=== PATIENT | female | born 1965 | race Caucasian/White ===

== ENCOUNTER 2016-11-27 06:42 | Day surgery (SDC) | payer OTHER ==
--- NOTE | 2016-11-09 12:02 | HP ---
PREOPERATIVE HISTORY AND PHYSICAL: DATE OF SURGERY/ADMISSION: 11/27/16 DATE OF OFFICE VISIT/ENCOUNTER: 11/07/16 ATTENDING SURGEON: Sheela Sr MD. PROCEDURE: Right wrist de Quervain's release, TFCC debridement. CHIEF COMPLAINT: Right wrist and thumb pain. HISTORY OF PRESENT ILLNESS: This is a 51-year-old female who is a [place] [employer] who sustained injury to her right upper extremity at work on when she was involved in a restraint. She had had persistent pain in the right wrist on both of the radial and ulnar aspects. She has failed conservative treatment including bracing and physical therapy. A recent MRI showed evidence of a tear in the TFCC. Clinically she also has been diagnosed with de Quervain's tenosynovitis. The symptoms are bothersome and debilitating enough that the patient has consented to proceed with surgical intervention at this time in the form of the right wrist de Quervain's release and a TFCC debridement. PAST MEDICAL HISTORY: Hypertension. PAST SURGICAL HISTORY: 1. Removal of skin cancer lesions. 2. Hysterectomy. 3. Appendectomy. 4. Left knee arthroscopy. 5. Dental surgery. 6. De Quervain's release, right wrist. 7. De Quervain's release, left wrist. 8. Left carpal tunnel release. CURRENT MEDICATIONS: 1. Hydrochlorothiazide 12.5 mg daily. 2. Fish oil. 3. Multivitamin daily. 4. Vitamin C. ALLERGIES: 1. ASPIRIN causes lip tingling and hives. 2. IBUPROFEN causes nausea. 3. BACTRIM causes nausea. 4. HYDROCODONE causes hives. 5. OXYCODONE causes hives. 6. MOTRIN, reaction unknown. FAMILY HISTORY: Stroke, diabetes, breast cancer. SOCIAL HISTORY: The patient is employed by the [employer]. She denies tobacco use and illicit drug use. She reports alcohol use on limited occasion. REVIEW OF SYSTEMS: General: Negative for fevers, chills, or night sweats. No known anesthesia problems. HEENT: Negative for headache, lightheadedness, or syncopal episodes. Integumentary: Negative for abrasions, lesions, or open wounds. Cardiothoracic: Positive for hypertension. Negative for chest pain, palpitations, or edema. Pulmonary: Negative for shortness of breath with exertion, chronic cough, COPD. GI: Negative for nausea, vomiting, diarrhea, constipation, or GERD. : Negative for nocturia, urinary frequency, urgency, history of UTIs, or kidney problems. Musculoskeletal: Positive for current complaint. Negative for chronic or intermittent back pain or history of fractures. Neurological: Negative for paresthesias, numbness, history of seizure, stroke, or epilepsy. Endocrine: Negative for diabetes or thyroid issues. Hematologic: Negative for easy bruising, anemia, excessive bleeding, or history of DVT. Infectious Disease: Negative for history of MRSA, hepatitis C, or HIV. PHYSICAL EXAMINATION GENERAL: Well-developed, well-nourished 51-year-old female in no acute distress. VITAL SIGNS: Height 5 feet 4 inches, weight 148 pounds. Blood pressure 142/ 83. Pulse rate 59. HEENT: Normocephalic, atraumatic. Pupils are equal, round, and reactive to light and accommodation. Extraocular motions are intact. NECK: Supple. No palpable lymph nodes. Throat is clear. PULMONARY: Lungs are clear to auscultation bilaterally. No wheezes, rales, or rhonchi. CARDIOVASCULAR: Regular rate and rhythm. S1, S2. No murmurs rubs or gallops. No edema. ABDOMEN: Positive bowel sounds, soft, nontender. NEUROLOGICAL: Alert and oriented x3, cranial nerves II through XII are intact. Sensation is intact to light touch. Peripheral vascular, 2+ radial and ulnar pulses. Negative Jose test. MUSCULOSKELETAL: On exam of her right upper extremity, she is tender to palpation along the first dorsal compartment of the wrist. She has increased pain with Rob testing. Very limited range of motion of her thumb and increased pain as she tries to abduct. She also has tenderness to palpation at the distal ulna and distal radioulnar joint and just distal to the ulnar head dorsally. Wrist motion in flexion and extension is quite limited. She lacks a little bit of finger extension and has difficulty making a tight fist. IMAGING STUDIES: MR arthrogram of the right wrist is suspicious for both central and peripheral TFCC tear. IMPRESSION: Right wrist de Quervain's tenosynovitis and triangular fibrocartilage complex tear. PLAN/RECOMMENDATIONS: The patient is scheduled to undergo a right wrist de Quervain's release and a TFCC debridement with Dr. Sr on 11/27/16. She will follow up in 10 to 14 days postop for followup and suture removal. A prescription for Ultracet was e-scribed to the patient's pharmacy for postoperative pain management. KRISTA CHRISTIAN [id number]/[facility] #: [id number] ЕКАТЕРИНА
[~2016-11-27 06:42] MED LIST: Buffered Lidocaine 0.9% SYRIN* 5 ML/SYR SYRINGE INTRADERM ONE; Sodium Citrate/Citric Acid* 15 ML UDC ONE; Sodium Citrate/Citric Acid* 15 ML UDC PO ONE
[2016-11-27] MEDS ORDERED: ceFAZolin 2 GM PREMIX(*) 2 GM/50 ML BAG IVPB ONE (06:53)
[2016-11-27] MEDS ORDERED: Buffered Lidocaine 0.9% SYRIN* 5 ML/SYR SYRINGE ONE (07:12)
[2016-11-27] MEDS ORDERED: Bupivacaine 0.5% SDV PF* 30 ML VIAL ONE (07:29)
[2016-11-27] MEDS ORDERED: fentaNYL* 50 MCG/ML 2 ML VIAL (100 MCG VIAL) ONE (07:37)
[2016-11-27] MEDS ORDERED: Propofol* 10 MG/ML 20 ML BTL IV PUSH ONE (07:37)
[2016-11-27] MEDS ORDERED: Midazolam* 1 MG/ML 2 ML VIAL (2 MG) ONE (07:37)
[2016-11-27] MEDS ORDERED: Lidocaine 2% PF * 5 ML VIAL ONE (07:37)
[2016-11-27] MEDS ORDERED: fentaNYL* 50 MCG/ML 2 ML VIAL (100 MCG VIAL) IV PRN (08:23)
[2016-11-27] MEDS ORDERED: Ondansetron INJ* 2 MG/ML VIAL IV PRN (08:23)
[2016-11-27] MEDS ORDERED: Ondansetron INJ* 2 MG/ML VIAL ONE (09:13)
[2016-11-27] MEDS ORDERED: traMADol TAB* 50 MG ONE (09:29)
[2016-11-27] MEDS ORDERED: Acetaminophen TAB* 325 MG ONE (09:30)
[2016-11-27 09:43] VITALS: BP 152/80
--- NOTE | 2016-11-28 02:03 | OP ---
DATE OF OPERATION: 11/27/16 - MERGED WITH [facility] DATE OF : 61 SURGEON: Sheela Sr MD HOSPITAL ORDERLY: KRISTA Beckman ANESTHESIOLOGIST: Christian Lester DO ANESTHESIA: General. PRE-OP DIAGNOSIS: De Quervain's tenosynovitis and TFCC tear of the right wrist. POST-OP DIAGNOSIS: De Quervain's tenosynovitis and TFCC tear of the right wrist. OPERATIVE PROCEDURE: Right De Quervain's release and right wrist arthroscopy and TFCC debridement. ESTIMATED BLOOD LOSS: Zero. TOURNIQUET TIME: About 35 minutes. 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 Her arm was twisted behind her back. She has on MRI a TFCC tear and she has De Quervain's tenosynovitis clinically. She presents for De Quervain's release and TFCC arthroscopy and debridement. OPERATIVE PROCEDURE: The patient was brought to the operating room, was given a general anesthetic and placed in supine position on the operating table with a tourniquet around her right upper arm. Skin of right upper extremity was prepped and draped in the usual sterile fashion. The hand and forearm were exsanguinated and tourniquet elevated to 250 mmHg. A longitudinal incision was made centered at the radial styloid. We dissected bluntly through the subcutaneous tissue. Branches of the radial sensory nerve and veins were retracted by the neurosurgical nurse practitioner, Patricia Lozano. The first dorsal compartment was incised longitudinally, completely releasing the APL and EPB tendons which were in good condition. The wound was irrigated and skin edges reapproximated with 4-0 nylon suture. Next, a stab incision was made just distal to Brenda's tubercle after filling the radiocarpal joint with 10 cc of 0.5% Marcaine plain. The arthroscope was placed with a cannula into the radiocarpal joint and diagnostic arthroscopy was performed. There was a tear of the TFCC. Scapholunate ligament was intact. The articular surface of the scaphoid, lunate, radius and triquetrum were in very good condition. A second portal was created in the 4-5 interval and a 2.0 Gator shaver was placed in the joint to debride the TFCC and the surrounding synovitis. The arthroscopy instruments were removed and a third portal was created just distal to the first. The arthroscope was placed in the mid carpal joint. We could see that the scapholunate and lunotriquetral ligaments were intact and the articular surface of all the mid carpal bones were intact. The wounds were irrigated and skin edges reapproximated with 4-0 nylon suture. The wounds were dressed with Xeroform, 4x4, Webril, and an Eduard wrap. Patient tolerated the procedure well, was brought to the recovery room in good condition. [id number]/[facility] #: [id number] ЕКАТЕРИНА
== END 2016-11-27 09:59 | disposition home or self-care (01) ==
LOC: OREAST 06:42
PROVIDERS: ATTEND Orthopaedic Surgery
DX: M65.4 Radial styloid tenosynovitis [de Quervain] (principal); S63.591A Other specified sprain of right wrist, initial encounter; X50.9XXA Other and unspecified overexertion or strenuous movements or postures, initial encounter; Y92.9 Unspecified place or not applicable; I10 Essential (primary) hypertension; Z88.6 Allergy status to analgesic agent; Z88.1 Allergy status to other antibiotic agents; Z88.5 Allergy status to narcotic agent
CPT/HCPCS: A9270-GY; J0690; J2250; J2405; J2704; J3010

== ENCOUNTER 2017-04-15 09:25 | Day surgery (SDC) | payer OTHER ==
[~2017-04-15 09:25] MED LIST changes: +DiMENhydriNATE IV* 50 MG/ML VIAL IV PUSH PRN; +Famotidine IV* 10 MG/ML 2 ML (20 mg) IV ONE; +Famotidine IV* 10 MG/ML 2 ML (20 mg) ONE; +HYDROcodone/ACETAMIN 5-325 MG* 1 TAB PO PRN; +Morphine INJ* 2 MG/ML 1 ML CARPUJECT IV PRN; +PROCHLORPERAZINE INJ 5 MG/ML 2 ML VIAL IV PRN; +Scopolamine 1.5 mg* PATCH TRANSDERM PRN; -Sodium Citrate/Citric Acid* 15 ML UDC ONE; -Sodium Citrate/Citric Acid* 15 ML UDC PO ONE; +fentaNYL* 50 MCG/ML 2 ML VIAL (100 MCG VIAL) IV PRN
[2017-04-15] MEDS ORDERED: ceFAZolin 2 GM PREMIX (*) 2 GM/50 ML BAG IVPB ONE (10:26)
[2017-04-15] MEDS ORDERED: Midazolam* 1 MG/ML 5 ML VIAL (5 MG) ONE (10:33)
[2017-04-15] MEDS ORDERED: KETAMINE HCL* 50 MG/ML 10 ML VIAL ONE (10:33)
[2017-04-15] MEDS ORDERED: fentaNYL* 50 MCG/ML 2 ML VIAL (100 MCG VIAL) ONE ×2 (10:33→13:05)
[2017-04-15] MEDS ORDERED: Ketorolac INJ* 30 MG/ML 1 ML VIAL ONE (10:54)
[2017-04-15] MEDS ORDERED: Bupivacaine 0.25% SDV* 30 ML ONE (11:09)
[2017-04-15] MEDS ORDERED: Propofol* 10 MG/ML 20 ML BTL IV PUSH ONE (11:53)
[2017-04-15] MEDS ORDERED: Ondansetron INJ* 2 MG/ML VIAL ONE (11:53)
[2017-04-15] MEDS ORDERED: Lidocaine 2% PF * 5 ML VIAL ONE (11:53)
[2017-04-15] MEDS ORDERED: PROCHLORPERAZINE INJ 5 MG/ML 2 ML VIAL ONE ×2 (11:53→13:55)
[2017-04-15] MEDS ORDERED: Dexamethasone IV* 4 MG/ML 1 ML (4 MG) ONE (11:53)
[2017-04-15] MEDS ORDERED: Glycopyrrolate IV* 0.2 MG/ML 1 ML VIAL ONE (11:53)
[2017-04-15] MEDS ORDERED: Scopolamine 1.5 mg* PATCH ONE (13:55)
[2017-04-15 15:02] VITALS: BP 138/80
--- NOTE | 2017-04-16 06:02 | OP ---
DATE OF SURGERY: 04/15/17 - OR EAST DATE OF [facility]: 61 ATTENDING SURGEON: Cintia Montes De Oca MD ANESTHESIOLOGIST: Dr. Lopez. ANESTHESIA: General interscalene block. PRE-OP DIAGNOSES: Right shoulder partial-thickness rotator cuff tear with bicipital tendonitis and acromioclavicular joint arthritis. POST-OP DIAGNOSES: Right shoulder high-grade partial-thickness bursal sided tearing of the supraspinatus and acromioclavicular joint arthritis. OPERATIVE PROCEDURE: 1. Glenohumeral debridement including debridement of the subscapularis. 2. Subacromial decompression with acromioplasty. 3. Distal clavicle excision. 4. Rotator cuff repair, double-row fashion. 5. Arthroscopic biceps tenodesis. COMPLICATIONS: None. ESTIMATED BLOOD LOSS: Minimal. IMPLANTS USED: One 4.75 HEALICOIL, one MULTIFIX. DISPOSITION: Stable. INDICATIONS: Tiara Gee is a 51-year-old female who was involved in a work- related injury where she injured her shoulder. She has failed conservative management. She also had wrist injury that was treated previously by Dr. Sr. She has failed conservative management and had persistent pain and MRI concerned for a partial thickness rotator cuff tear. After extensive discussion of the risks and benefits of surgical versus nonoperative treatment, she has elected to proceed with surgical treatment. Risks included, but are not limited to bleeding, infection, damage to nerves, vessels, surrounding structures, wound nonhealing, persistent pain, need for further surgery, scarring, stiffness, incomplete relief of symptoms, risk of anesthesia. DESCRIPTION OF PROCEDURE: The patient was greeted in the preoperative area by the attending surgeon. Correct extremity was marked and consent was confirmed. The patient underwent interscalene nerve block by the anesthesiologist, after which she was brought to the operating suite. She was placed in supine position on the operating table. She underwent general anesthesia with LMA intubation, after which she was placed in the left lateral decubitus position with all bony prominences padded. An axillary roll was placed. She was secured with a pegboard. The right arm was draped unsterile with 10 pounds of traction. The right shoulder was prepped and draped in the usual sterile fashion, beginning with chlorhexidine soap, scrub, and alcohol wipes and a final prep with ChloraPrep. After appropriate surgical pause indicating side, site of the procedure and administration of antibiotics, a posterolateral incision was made sharply with the 11-blade. The scope was then introduced into the joint. The joint was examined. There was abundant erythema and hyperemia. There was undersurface tearing of supraspinatus as well as subscapularis. The anterior portal was made in outside-in fashion. Biceps was taken through range of motion and found to have a synovitis and inflammation, although most of the superior labrum was still attached. The anterior and posterior labrum had mild fraying. The glenohumeral joint had grade 0 to 1 changes. The inferior recess was intact. Subscapularis was intact, about 5% of fraying. The shaver was used to debride back the undersurface of the subscap as well as the supraspinatus. This was then marked with an 0 PDS suture to identify there is tearing on the dorsal site. The biceps was also tagged with an 0 Vicryl PDS suture for later tenodesis to be done arthroscopically. The remainder of the debridement was completed and attention was directed to subacromial space. The scope was then positioned in the subacromial space and a lateral port was made in outside-in fashion. The shaver was used to debride the abundant bursa that was present. This exposed the undersurface of the acromion and had a moderate size spur. The electrocautery device was then used to skeletonize this as well as release the CA ligament. Once the spur was identified, the 4-0 oval huseyin was used to do an acromioplasty all the way to the level of AC joint, which was very stenotic. The electrocautery device was used to expose and remove some of the soft tissues with care to prevent damage to the CC ligament. Attention was directed to the distal clavicle. The huseyin was brought into the anterior portal, 8 mm of distal clavicle was resected using a 4-0 oval huseyin with care to prevent any damage to the CC ligaments. All fluids and debris was removed and all excess debris was removed. Attention was directed to the rotator cuff. The previously marked site with the PDS sutures identified and probed, it was found to have partial-thickness tearing on the bursal site and softening, and the decision was made to repair this. The 11-blade was used to complete the tear and the electrocautery device as well as the shaver and the rasp as well as arthroscopic huseyin were then used to prepare the greater tuberosity. The biceps was then brought through to the subacromial space and this was also kept on tension to be tagged and then later repaired. A separate #2 ortho braid suture was passed through the biceps tendon and tenodesis with rotator cuff repair. A one 4.75 HEALICOIL was placed through separate stab incision along the medial aspect of the greater tuberosity and passed through the supraspinatus tendon in a horizontal mattress configuration. This was then tied down. The biceps was also tied down, but the free sutures were then passed through a separate MULTIFIX anchor for double- row fixation of the rotator cuff and anchor fixation of the biceps. Final images were taken. Shoulder was taken through range of motion and found to be intact. Fluids and debris were removed from the joint. The wounds were copiously irrigated with sterile saline. The wounds were closed with 3-0 nylon. Sterile dressings were applied as well as Cryo/Cuffs and UltraSling. She was awoken from anesthesia, transferred to PACU in stable condition. POSTOPERATIVE PLAN: She will be nonweightbearing. She will be in a sling for 6 weeks. She will have range of motion of her elbow, wrist, and hand. She will start therapy at 4 weeks. She will be discharged on pain medications. DVT prophylaxis was considered, but deferred due to no previous personal or family history. I will see the patient back in 10 to 14 days. [id number]/[facility] #: [id number] ЕКАТЕРИНА
[2017-04-18] MEDS ORDERED: Scopolamine PATCH Remove* 1 NOTE MISC PATCH OFF ONE (05:49)
== END 2017-04-15 15:03 | disposition home or self-care (01) ==
LOC: OREAST 09:25
PROVIDERS: ATTEND Orthopaedic Surgery
DX: S46.011A Strain of muscle(s) and tendon(s) of the rotator cuff of right shoulder, initial encounter (principal); M19.211 Secondary osteoarthritis, right shoulder; X58.XXXA Exposure to other specified factors, initial encounter; Y92.9 Unspecified place or not applicable; G89.18 Other acute postprocedural pain; S46.101A Unspecified injury of muscle, fascia and tendon of long head of biceps, right arm, initial encounter; M75.21 Bicipital tendinitis, right shoulder; M75.41 Impingement syndrome of right shoulder; I10 Essential (primary) hypertension; Z85.828 Personal history of other malignant neoplasm of skin; Z88.6 Allergy status to analgesic agent; Z88.1 Allergy status to other antibiotic agents; Z88.5 Allergy status to narcotic agent; Z88.7 Allergy status to serum and vaccine; Z88.8 Allergy status to other drugs, medicaments and biological substances
CPT/HCPCS: A9270-GY; C1713; J0690; J0780; J1100; J1885; J2250; J2405; J2704; J3010

== ENCOUNTER 2018-02-03 06:14 | Day surgery (SDC) | payer OTHER ==
--- NOTE | 2018-01-28 19:22 | HP ---
PREOPERATIVE HISTORY AND PHYSICAL: DATE OF ADMISSION/SURGERY: 02/03/18 - OR EAST DATE OF OFFICE VISIT: 01/28/18 ATTENDING SURGEON: Dr. Cintia Montes De Oca.* (DICTATED BY KRISTA NEWSOME) PROCEDURE: Right shoulder arthroscopic lysis of adhesions, debridement, manipulation, and possible revision of rotator cuff repair. CHIEF COMPLAINT: Right shoulder. HISTORY OF PRESENT ILLNESS: Tiara is a 52-year-old female, who presents to the clinic status post right shoulder rotator cuff repair on 04/15/17. Her postoperative course was complicated with stiffness. She is still unable to raise her arm actively above 90 degrees. She has failed conservative measures to include physical therapy and injection, and has therefore agreed to undergo right shoulder arthroscopic lysis of adhesions, debridement, manipulation, and possible revision of rotator cuff repair with Dr. Montes De Oca on 02/03/18. PAST MEDICAL HISTORY: Hypertension; previous type 2 diabetes, controlled with diet and exercise; previous high cholesterol; history of skin cancer that was removed several times. PAST SURGICAL HISTORY: Right shoulder, right wrist, left knee x2, appendectomy , hysterectomy, and skin cancer removal. The patient denies prior complications with anesthesia. MEDICATIONS: 1. Hydrochlorothiazide 12.5 mg 1 by mouth daily. 2. Tylenol 325 mg 2 tabs every 4 hours as needed. ALLERGIES: BACTRIM, ASPIRIN, IBUPROFEN, HYDROCODONE, OXYCODONE, MOTRIN. FAMILY HISTORY: Positive for diabetes, hypertension, stroke, and cancer. SOCIAL HISTORY: She lives with her spouse. 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 She denies tobacco use. She reports rare alcohol consumption. She is right-hand dominant. REVIEW OF SYSTEMS: A 14-point review of systems was reviewed with the patient. Positive for current complaint, otherwise negative. Denies fever, chills, chest pain, shortness of breath, history of bleeding disorder, history of DVT or PE. PHYSICAL EXAMINATION GENERAL: A 52-year-old, well-developed, well-nourished female, in no acute distress. VITAL SIGNS: Height 64, weight 166, pulse 72, blood pressure 128/82, respiratory rate 18, BMI 28.5. HEENT: Normocephalic, atraumatic. PERRLA. Throat: Clear. NECK: Supple. PULMONARY: Lungs are clear to auscultation bilaterally. No wheezing, rhonchi, or rales. CARDIO: Regular rate and rhythm. S1, S2. No murmurs, gallops, or rubs. No edema. ABDOMEN: Positive bowel sounds, soft, nontender. NEURO: Alert and oriented x3. Cranial nerves grossly intact. Sensation is intact to light touch. MUSCULOSKELETAL: Right upper extremity, skin is intact. No warmth or erythema. Well-healed surgical incision. She does have global edema of her right upper extremity compared to the contralateral side. Active forward flexion to 90, abduction to 90, passively unable to get her past, external rotation to 45, internal rotation to lateral hip. +2 radial pulse. Sensation is intact to light touch distally. DIAGNOSTIC STUDIES: MR arthrogram revealed no full-thickness rotator cuff tear. She does have tendinopathy and fluid extravasation indicating some adhesive capsulitis. ASSESSMENT: Right shoulder adhesive capsulitis, possible rotator cuff tear. PLAN: The patient is scheduled to undergo a right shoulder arthroscopic lysis of adhesions, debridement, and manipulation, and possible revision of rotator cuff repair with Dr. Montes De Oca on 02/03/18. Jud will be used for postop pain management. The patient had tolerated that well last time. She will follow up in 10 to 14 days postop for followup and suture removal. We will set up physical therapy for the day after surgery in case it is just a manipulation and we will cancel this if it is a rotator cuff repair. KRISTA NEWSOME [id number]/[facility] #: [id number] [facility]ALTH[facility]
[~2018-02-03 06:14] MED LIST changes: +Dexamethasone IV* 4 MG/ML 1 ML (4 MG) IV SLOW PU ONE; -DiMENhydriNATE IV* 50 MG/ML VIAL IV PUSH PRN; -Famotidine IV* 10 MG/ML 2 ML (20 mg) ONE; -HYDROcodone/ACETAMIN 5-325 MG* 1 TAB PO PRN; -Morphine INJ* 2 MG/ML 1 ML CARPUJECT IV PRN; -PROCHLORPERAZINE INJ 5 MG/ML 2 ML VIAL IV PRN; -Scopolamine 1.5 mg* PATCH TRANSDERM PRN; -fentaNYL* 50 MCG/ML 2 ML VIAL (100 MCG VIAL) IV PRN
[2018-02-03] MEDS ORDERED: Famotidine IV* 10 MG/ML 2 ML (20 mg) ONE (06:18)
[2018-02-03] MEDS ORDERED: Dexamethasone IV* 4 MG/ML 1 ML (4 MG) ONE (06:18)
[2018-02-03] MEDS ORDERED: ceFAZolin 2 GM in NS PREMIX(*) 2 GM/100 ML BAG IVPB ONE (06:24)
[2018-02-03] MEDS ORDERED: Propofol* 10 MG/ML 20 ML BTL IV PUSH ONE (07:04)
[2018-02-03] MEDS ORDERED: fentaNYL* 50 MCG/ML 2 ML VIAL (100 MCG VIAL) ONE (07:04)
[2018-02-03] MEDS ORDERED: Lidocaine 2% PF * 5 ML VIAL ONE (07:04)
[2018-02-03] MEDS ORDERED: Mivacurium Chloride* 20 MG/10 ML VIAL IV ONE (07:04)
[2018-02-03] MEDS ORDERED: Midazolam* 1 MG/ML 2 ML VIAL (2 MG) ONE (07:04)
[2018-02-03] MEDS ORDERED: ROPIVACAINE 5 MG/ML 30 ML BTL (0.5%) ONE ×2 (07:05→07:09)
[2018-02-03] MEDS ORDERED: fentaNYL* 50 MCG/ML 2 ML VIAL (100 MCG VIAL) IV PRN (08:27)
[2018-02-03] MEDS ORDERED: HYDROcodone/ACETAMIN 5-325 MG* 1 TAB PO PRN (08:27)
[2018-02-03] MEDS ORDERED: Naloxone* 0.4 MG/ML 1 ML VIAL IV PRN (08:27)
[2018-02-03] MEDS ORDERED: DiMENhydriNATE IV* 50 MG/ML VIAL IV PUSH PRN (08:27)
[2018-02-03] MEDS ORDERED: Ondansetron INJ* 2 MG/ML VIAL ONE (08:43)
[2018-02-03] MEDS ORDERED: DiMENhydriNATE IV* 50 MG/ML VIAL ONE (09:19)
--- NOTE | 2018-02-03 10:57 | OP ---
CC: PCP, Unruly Rodriguez MD * DATE OF OPERATION: 02/03/18 - [facility] DATE OF : 61 SURGEON: Cintia Montes De Oca MD DIRECTOR OF KNOWLEDGE MANAGEMENT: KRISTA Beckman. An evaluation assistant was needed for the entirety of the case to help with position, retraction, and utilized throughout all portion of the case. ANESTHESIOLOGIST: Dunia Sosa MD ANESTHESIA: General interscalene block. PRE-OP DIAGNOSIS: Right shoulder adhesive capsulitis with possible partial- thickness tear of the rotator cuff. POST-OP DIAGNOSIS: Right shoulder adhesive capsulitis with possible partial- thickness tear of the rotator cuff. OPERATIVE PROCEDURE: Right shoulder arthroscopy with: 1. Manipulation under anesthesia. 2. Lysis of adhesions. 3. Rotator cuff repair with REGENETEN patch. INDICATIONS: Tiara Gee is a 52-year-old female, who was status post right shoulder arthroscopy with rotator cuff repair, decompression, debridement, and subpectoral biceps tenodesis, the surgery was 04/15/17 as a result of a work- related injury. She struggled with pain and motion postoperatively. She did have an MRI that demonstrated a possible partial-thickness tear. The risks and benefits of the surgery were discussed at length included but not limited to bleeding; infection; damage to nerves, vessels, surrounding structures; wound nonhealing; persistent pain; need for further surgery; scarring; stiffness; incomplete relief of symptoms; risk of anesthesia. COMPLICATIONS: None. ESTIMATED BLOOD LOSS: Minimal. IMPLANTS: REGENETEN patch with appropriate bone and tendon phil. DISPOSITION: Stable. DESCRIPTION OF PROCEDURE: The patient was greeted in the preoperative area by the attending surgeon. Correct extremity was marked. Consent was confirmed. The patient then underwent interscalene nerve block by the anesthesiologist after which she was brought back to the operating suite. She was placed in supine position on the operating table. She then underwent general anesthesia with endotracheal intubation after which she was appropriately positioned. A brief surgical pause was done and the range of motion was checked. She was able to passively forward flex to about 140 and then I manipulated her to forward flex to 160. There were obvious adhesions that were present and with audible lysis of adhesion. External rotation to about 75 degrees. Abduction to about 150 degrees. It was done passively with care to stabilize the scapula and she was able to cross-body adduct to her other shoulder, after which she was placed in the left lateral decubitus position, all bony prominences were padded. She was secured with pegboard. Axillary roll was placed. The right shoulder was draped unsterile with 10 pounds of traction. The right shoulder was prepped and draped in the usual sterile fashion beginning with chlorhexidine soap, scrub, and alcohol wipe, and a final prep with ChloraPrep. After appropriate surgical pause indicating side, site, procedure, and administration of antibiotics, the standard posterolateral portal was made sharply with 11 blade. The scope was positioned. There were definite adhesions. It was difficult to get the scope in. Once the scope was in, there were grade 0 to 1 changes of glenohumeral joint. There was evidence of previous biceps tenotomy. The undersurface of rotator cuff had evidence of loss of tension of the sutures. There were no free flying loose fragments and there was evidence that the rotator cuff had healed in spite of that. The subscap was intact. There were significant amount of adhesions anteriorly and abundant scar tissue injury. Recess was intact. The anterior portal was made in an outside-in fashion. A shaver was used to debride the synovitis, but the electrocautery device was used to carefully try to release the adhesions particularly anteriorly as well as remove the scar tissue from the interval. Once the intra-articular portion had been completed, attention was directed to the subacromial space. With the scope in the subacromial space, the joint was examined. There was significant amount of scar tissue and recurrent impingement that was present in the subacromial space. A lateral portal was made in an outside-in fashion. Shaver was used to debride back the abundant thick bursa that was present both anteriorly, medially, laterally, and posteriorly. The electrocautery device was then used to skeletonize the acromion again. The shaver was used to debride the bursa off the rotator cuff. The rotator cuff was found to be intact on the bursal side. Once the bursa was cleared and the cuff gently probed, the decision was made to do put a REGENETEN patch, as she did have partial-thickness tearing in the undersurface. The medium size patch was then brought to the field and then placed appropriately. The patch was secured medially with tendon staple and laterally with bone phil. The final images were obtained. The wounds were copiously irrigated with sterile saline and the portals were closed with 3-0 nylon. Sterile dressings were applied as well as regular sling. She was awoken from anesthesia and transferred to PACU in stable condition. POSTOPERATIVE PLAN: She will be nonweightbearing. She will be discharged on pain medication. DVT prophylaxis was considered but deferred due to no previous personal or family history. I will see the patient back in 10 to 14 days. She will start therapy on postop day 1 and wean out of the sling in the next 2 to 3 days. DVT prophylaxis was considered but deferred due to no previous personal or family history. [id number]/[facility] #: [id number] [facility]OSPITALRhonda
[2018-02-03 11:01] VITALS: BP 169/78
== END 2018-02-03 10:40 | disposition home or self-care (01) ==
LOC: OREAST 06:14
PROVIDERS: ATTEND Orthopaedic Surgery
DX: S46.011D Strain of muscle(s) and tendon(s) of the rotator cuff of right shoulder, subsequent encounter (principal); M75.01 Adhesive capsulitis of right shoulder; X58.XXXD Exposure to other specified factors, subsequent encounter; Y92.89 Other specified places as the place of occurrence of the external cause; I10 Essential (primary) hypertension; Z85.828 Personal history of other malignant neoplasm of skin; G89.18 Other acute postprocedural pain
CPT/HCPCS: 88304; C1713; J0690; J1100; J1240; J2250; J2405; J2704; J2795; J3010

== ENCOUNTER 2019-09-02 13:28 | Emergency (ER) | payer OTHER ==
--- OUTSIDE RECORDS SUMMARY | 2019-09-02 13:55 | XMS REPORT | Continuity of Care Document ---
:1965 External Reference #:[id number] Author Name Unruly Rodriguez M.D. Address [address] [place] [address] Care Team Providers Name Role Phone Sheela Sr MD - Surgery of the Care Team Information Account Resolution Analyst Hand Marbin Taylor MD Care Team Information Account Resolution Analyst Unavailable Demetri Garcia MD Care Team Information Account Resolution Analyst [phone] Irma Martinez MD - Dermatology Care Team Information Account Resolution Analyst Keyona Grimes - Allergy & Care Team Information Account Resolution Analyst [phone] Immunology Dorian Butts MD - Care Team Information Account Resolution Analyst [phone] Gastroenterology Giselle Pisano - Pediatric Care Team Information Account Resolution Analyst [phone] Dermatology Problems Active Problems Provider Date Essential hypertension Unruly Rodriguez M.D. Onset: 08/27/2011 Rosacea Unruly Rodriguez M.D. Onset: 08/27/2011 Type 2 diabetes mellitus Unruly Rodriguez M.D. Onset: 08/27/2011 Pure hypercholesterolemia Unruly Rodriguez M.D. Onset: 08/27/2011 Social History Type Date Description Comments Sex Unknown Tobacco Use Start: Unknown Never Smoked Cigarettes ETOH Use Drinks A Few Beers A Year. Tobacco Use Start: Unknown Patient has never smoked Exercise Type/Frequency Exercising Regularly weights, running 5-6x/week. Goal is 1 hour at a time. Often 90-120min a day. aerobic Weights as well. 10k+ steps a day at work. Allergies, Adverse Reactions, Alerts Active Allergies Reaction Severity Comments Date Bactrim Trouble Breathing 06/07/2003 Emilyrosyn felt funny, tongue tingling 01/13/2010 Enalapril angioedema 04/27/2012 Aspirin angioedema 06/17/2014 Hepatitis B Vaccine trouble breathing 06/17/2014 Losartan nasal congestion 05/09/2016 Medications Active Medications SIG Qnty Indications Ordering Date Provider Hydrochlorothiazide Take 1 Tablet 90tabs I10 Unruly Jiméneze, 05/05/2017 25mg Tablets By Mouth M.D. Every Day Metrogel apply to rash 60gm L71.9 Unruly Rodriguez, 09/06/2016 1% Gel on face every M.D. day as needed Medications Administered in Office Medication SIG Qnty Indications Ordering Provider Date TB,Intradermal (PPD, [facility]) [facility] 04/13/2019 Injection Phenergan Injection (Up To Donald Mark M.D. 07/03/2005 50MG) Injection Demerol Injection (Up To Donald Mark M.D. 07/03/2005 100MG) Injection Immunizations CPT Code Status Date Vaccine Lot # [id number] Given 02/12/2019 Influenza Virus Vaccine, Quadrivalent, 3 Yr > Quad, Preserv Free 31062 Given 08/06/2018 Tdap (Adacel) [id number] 34428 Given 02/19/2018 Influenza Virus Vaccine, Quadrivalent, 3 Yr > Quad, Preserv Free 58537 Given 04/05/2017 Influenza Virus Vaccine, Quadrivalent, 3 Yr > [id number] Quad, Preserv Free 14293 Given 04/20/2016 Influenza Virus Vaccine, Quadrivalent, 3 Yr > [id number] Quad, Preserv Free 26399 Given 03/22/2014 Influenza Virus Vaccine, Quadrivalent, 3 Yr > Quad, Preserv Free 53256 Given 02/09/2009 Tdap (Adacel) [id number] 09667 Given 04/12/2004 Influenza Virus Vaccine, 3 Yrs And Above Vital Signs Date Vital Result Comment 06/18/2019 9:31am Weight 157.00 lb Weight 71.215 kg BP Systolic 124 mmHg BP Diastolic 82 mmHg Heart Rate 64 /min Body Temperature 98.4 F Respiratory Rate 16 /min Height 64 inches 5'4" BMI (Body Mass Index) 26.9 kg/m2 11/06/2018 9:53am Weight 170.00 lb Weight 77.112 kg BP Systolic 122 mmHg BP Diastolic 76 mmHg Heart Rate 60 /min Body Temperature 98.6 F Respiratory Rate 15 /min O2 % BldC Oximetry 98 % Results Test Acquired Facility Test Result H/L Range Note Date Laboratory 05/26/2019 [facility] Hemoglobin A1c 6.6 % High 4.0-5.6 1 test finding [phone] (Glyco HGB) Lipid Profile 05/26/2019 [facility] Triglycerides 199 mg/dL 2 (Trig/Chol/HDL [phone] ) Cholesterol 229 mg/dL 3 HDL Cholesterol 56.7 mg/dL 4 LDL Cholesterol 133 mg/dL 5 Laboratory test 05/26/2019 [facility] Glucose 158 mg/ dL High 70-100 6 finding [phone] 1 Therapeutic target for the treatment of diabetes mellitus patients is <7% HBA1C, and in selective patients <6.0%. Please refer to [place] [employer] diabetic care guidelines for further information. 2 Desirable: <150 Borderline High: 150-199 High: 200-499 Very High: >500 3 Desirable: <200 Borderline High: 200-239 High: >239 4 Low: <40 Desirable: 40-60 High: >60 5 Desirable: <100 Near Optimal: 100-129 Borderline High: 130-159 High: 160-189 Very High: >189 6 [id number] FASTING Procedures Date Code Description Status 09/17/2014 [id number] Colonoscopy Completed Medical Devices Description No Information Available Encounters Description No Information Available Assessments Date Code Description Provider 06/18/2019 E11.9 Type 2 diabetes mellitus without Unruly Rodriguez M.D. complications 06/18/2019 E78.00 Pure hypercholesterolemia, unspecified Unruly Rodriguez M.D. 06/18/2019 I10 Essential (primary) hypertension Unruly Rodriguez M.D. 05/26/2019 E11.9 Type 2 diabetes mellitus without Unruly Rodriguez M.D. complications 05/26/2019 E11.9 Type 2 diabetes mellitus without [facility] complications 05/26/2019 E78.00 Pure hypercholesterolemia, unspecified Unruly Rodriguez M.D. 05/26/2019 E78.00 Pure hypercholesterolemia, unspecified [facility] 04/13/2019 Z11.1 Encounter for screening for respiratory Unruly Rodriguez M.D. tuberculosis Plan of Treatment Future Appointment(s):02/10/2020 8:00 am - [facility] Euzyym5002/17/2020 8:45 am - Unruly Rodriguez M.D. at [facility] Wnavlh0606/18/2019 - Unruly Rodriguez M.D.E11.9 Type 2 diabetes mellitus without complicationsComments:A1c has dropped to 6.6.I recommend starting metformin.She is very eager to remain off of medication and has been making dramatic efforts at lifestyle change.Follow up :CPE in Jan, fasting labs a week before.E78.00 Pure hypercholesterolemia, unspecifiedComments:We discussed indication for statin.Lipid panel is quite remarkable through diet and exercise.LDL slightly above goal.Again it seems reasonable to honor request to be on no medication and continue her current lifestyle [id number] Essential (primary) hypertensionComments:Well controlled on current medications. Functional Status Description No Information Available Mental Status Description No Information Available Referrals Description No Information Available
[2019-09-02] MEDS ORDERED: Ondansetron ODT TAB* 4 MG PO ONE (14:00)
--- NOTE | 2019-09-02 14:07 | ED ---
Complex/Multi-Sys Presentation - HPI Summary HPI Summary: Patient is a 54 y/o F presenting to [facility] with complaints of tingling at her extremities, N/V and tachypnea. Patient reports that, this morning, she felt "funny" and "off". Patient states that she went for a three mile walk, which she notes was abnormally difficult for her. When patient was at home, she sat on the cough and felt her left hand start to tingle. Patient began to move around the house and states that the sensation radiated up her arm. Tingling at her right arm subsequently onset. Patient notes FMHx of CVA in father, she was concerned for stroke and came to ED for evaluation. She states that her tingling onset around 1300 today, 09/02/19. Patient notes that she has been intermittently nauseous and had vomited multiple times in triage. Tachypnea is also noted. Weakness, slurred speech, changes in vision are denied. Patient also notes that she had loose stools yesterday. PMHx of HTN for which the patient is on hydrochlorothiazide and pre-eclampsia noted. Patient states that she was told that she had two panic attacks when she was experiencing pre- eclampsia. PSHx of appendectomy, hysterectomy, caesarean sections, knee surgeries reported. Patient is a non-smoker, rarely smokes alcohol, and denies other substance usage. Home medications and allergies are reviewed. - History Of Current Complaint Chief Complaint: EDNeurologicalDeficit Time Seen by Provider: 09/02/19 13:49 Hx Obtained From: Patient Onset/Duration: Lasting Minutes Timing: Minutes Aggravating Factor(s): nothing Alleviating Factor(s): nothing Associated Signs And Symptoms: Positive: Nausea, Vomiting, Other - positive - tachypnea, tingling, loose stools; negative - slurred speech, changes in vision. Negative: Weakness - Allergies/Home Medications Allergies/Adverse Reactions: Allergies Allergy/AdvReac Type Severity Reaction Status Date / Time sulfamethoxazole Allergy Severe Anaphylatic Verified 03/26/18 09:17 [From Bactrim] Shock aspirin Allergy Intermediate Hives Verified 03/26/18 09:17 ibuprofen Allergy Intermediate Swelling Verified 03/26/18 09:17 Of Face,Lips,& Throat oxycodone Allergy Intermediate Hives Verified 03/26/18 09:17 ALMONDS Allergy Intermediate EYE Uncoded 03/26/18 09:17 SWELLING ADHESIVES AdvReac Mild REDNESS Uncoded 03/26/18 09:17 Home Medications: Home Medications Acetaminophen [Tylenol Extra Strength] 1,000 mg PO Q8H PRN 03/10/18 [History Confirmed 09/02/19] Hydrochlorothiazide TAB* [Hydrodiuril TAB*] 25 mg PO DAILY 09/02/19 [History Confirmed 09/02/19] Magnesium Carb/Aluminum Hydrox [Antacid Ex-Str Tablet Chew] 1 each PO QAM 7 Days #7 tab.chew 09/02/19 [Rx] Ondansetron ODT TAB* [Zofran 4 MG Odt TAB*] 4 mg PO Q8H PRN #12 tab.odt [Rx] Potassium Chlor TAB* [Potassium Chlor TAB 20 MEQ*] 20 meq PO DAILY 7 Days #7 tab.er 09/02/19 [Rx] PMH/Surg Hx/FS Hx/Imm Hx Endocrine/Hematology History: Denies: Hx Bone Marrow Disease, Hx Diabetes - HX OF BEFORE WEIGHT LOSS, NO PROBLEMS NOW, Hx Sickle Cell Disease Cardiovascular History: Reports: Hx Hypertension - ON MEDS Denies: Hx Pacemaker/ICD, Other Cardiovascular Problems/Disorders Respiratory History: Denies: Other Respiratory Problems/Disorders GI History: Denies: Other GI Disorders History: Denies: Hx Renal Disease Musculoskeletal History: Reports: Other Musculoskeletal History - INJURY TO RIGHT SHOULDER/WRIST 10/10/16 Sensory History: Reports: Hx Contacts or Glasses - glasses for reading Denies: Hx Hearing Aid Opthamlomology History: Reports: Hx Contacts or Glasses - glasses for reading Neurological History: Reports: Hx Migraine - rarely- usually stress related Denies: Other Neuro Impairments/Disorders Psychiatric History: Reports: Hx Anxiety - pre surgery anxiety Denies: Hx Panic Disorder - Cancer History Cancer Type, Location and Year: SKIN CARCINOMA Hx Chemotherapy: No Hx Radiation Therapy: No - Surgical History Surgery Procedure, Year, and Place: HYSTEROECTOMY. . APPENDIX. 2 LEFT KNEE SURGERY. LEFT WRIST SURGERY 2016. CARPAL TUNNEL ON LEFT WRIST 2015. RIGHT WRIST SURGERY IN SEPTEMBER 2016. RIGHT HAND SURGERY IN SEPTEMBER 2016. RIGHT SHOULDER, MAR 2017 Hx Anesthesia Reactions: No Infectious Disease History: No Infectious Disease History: Denies: History Other Infectious Disease, Traveled Outside the [place] in Last 30 Days - Family History Known Family History: Positive: Other - CVA - Social History Alcohol Use: Rare Alcohol Amount: 2-3 PER YEAR Substance Use Type: Reports: None Smoking Status (MU): Never Smoked Tobacco Review of Systems Eyes: Other - negative - changes to vision Positive: Other - tachypnea Positive: Vomiting, Nausea, Other - loose stools Positive: Paresthesia - tingling . Negative: Weakness, Slurred Speech All Other Systems Reviewed And Are Negative: Yes Physical Exam - Summary Physical Exam Summary: Constitutional: Well-developed, Well-nourished, Alert. (-) Distressed Skin: Warm, Dry HENT: Normocephalic; Atraumatic Eyes: Conjunctiva normal Neck: Musculoskeletal ROM normal neck. (-) JVD, (-) Stridor, (-) Tracheal deviation Cardio: Rhythm regular, rate normal, Heart sounds normal; Intact distal pulses; Radial pulses are 2+ and symmetric. (-) Murmur Pulmonary/Chest wall: Effort normal. (-) Respiratory distress, (-) Wheezes, (-) Rales Abd: Soft, (-) tenderness, (-) Distension, (-) Guarding, (-) Rebound Musculoskeletal: (-) Edema Lymph: (-) Cervical adenopathy Neuro: Alert, Oriented x3; GCS 15, NIH 0 Psych: Anxious appearing Triage Information Reviewed: Yes Vital Signs On Initial Exam: Initial Vitals Temp Pulse Resp BP Pulse Ox 99.1 F 95 18 166/114 99 09/02/19 13:31 09/02/19 13:31 09/02/19 13:31 09/02/19 13:31 09/02/19 13:31 Vital Signs Reviewed: Yes - John Coma Scale Best Eye Response: 4 - Spontaneous Best Motor Response: 6 - Obeys Commands Best Verbal Response: 5 - Oriented Coma Scale Total: 15 Procedures - Sedation Patient Received Moderate/Deep Sedation with Procedure: No Diagnostics - Vital Signs Vital Signs Temp Pulse Resp BP Pulse Ox 09/02/19 13:31 99.1 F 95 18 166/114 99 - Laboratory Result Diagrams: 09/02/19 14:15 09/02/19 14:15 Lab Statement: Any lab studies that have been ordered have been reviewed, and results considered in the medical decision making process. - CT BRAIN CT CT Interpretation Completed By: Radiologist Summary of CT Findings: IMPRESSION: #. No acute intracranial process evident. THIS REPORT WAS REVIEWED BY ED PHYSICIAN. National Institutes Of Health - NIH Scale Level of Consciousness: Alert/Keenly Responsive Ask Patient the Month and His/Her Age: Both Correct Ask Pt to Open/Close Eyes and Security Guard Dispatcher/Release Non-Paretic Hand: Both Correctly Best Gaze (Only Horizontal Eye Movement): Normal Visual Field Testing: No Visual Loss Facial Paresis-Pt to Smile & Close Eyes or Grimace Symmetry: Normal/Symmetrical Motor Function - Right Arm: No Drift-Holds 10 Seconds Motor Function - Left Arm: No Drift-Holds 10 Seconds Motor Function - Right Leg: No Drift-Holds 10 Seconds Motor Function - Left Leg: No Drift-Holds 10 Seconds Limb Ataxia-Must be out of Proportion to Weakness Present: Absent Sensory (Use Pinprick to Test Arms/Legs/Trunk/Face): Normal Best Language (Describe Picture, Name Items): No Aphasia Dysarthria (Read Several Words): Normal Extinction and Inattention: No Abnormality Total Score: 0 Complex Multi-Symp Course/Dx Course Of Treatment: Patient is here with tingling in her hands and feet. Patient was very anxious upon arrival due to her father's having a stroke in the past. The patient has an NIH stroke scale of 0. Patient was vomiting in a projectile fashion's a CT brain was ordered to eval for intracranial hemorrhage which was negative. Patient had bladder performers hypokalemia and hypomagnesemia. Patient was given 40 mEq of by mouth potassium, 20 mg of IV potassium, and 2 g of IV magnesium. Patient was started on by mouth magnesium and potassium. Patient will follow up with her primary care doctor for further workup and recheck - Diagnoses Provider Diagnoses: Hypokalemia, Hand tingling, Vomiting - Critical Care Time Critical Care Statement: Critical care time is provided exclusive of any time spent performing procedures. Discharge ED - Sign-Out/Discharge Documenting (check all that apply): Patient Departure - discharge - Discharge Plan Condition: Stable Disposition: HOME Prescriptions: Magnesium Carb/Aluminum Hydrox [Antacid Ex-Str Tablet Chew] 1 each PO QAM 7 Days #7 tab.chew Ondansetron ODT TAB* [Zofran 4 MG Odt TAB*] 4 mg PO Q8H PRN #12 tab.odt PRN Reason: Vomiting Potassium Chlor TAB* [Potassium Chlor TAB 20 MEQ*] 20 meq PO DAILY 7 Days #7 tab.er Patient Education Materials: Hypokalemia (ED), Acute Nausea and Vomiting (ED), Paresthesia (ED) Referrals: Unruly Rodriguez MD [Primary Care Provider] - 2 Days Additional Instructions: TAKE YOUR MEDICATIONS PRESCRIBED. FOLLOWUP WITH YOUR PRIMARY CARE PHYSICIAN WITHIN TWO DAYS. YOU WILL NEED TO GET YOUR POTASSIUM RECHECKED IN 5-7 DAYS. PLEASE RETURN TO ED FOR ONE-SIDED WEAKNESS, ONE-SIDED NUMBNESS, SLURRED SPEECH, OR ANY OTHER CONCERNING SYMPTOMS. - Billing Disposition and Condition Condition: STABLE Disposition: Home - Attestation Statements Document Initiated by Roxie: Yes Documenting Scribe: DANIEL JESUS Provider For Whom Roxie is Documenting (Include Credential): HENNY DEE MD Scribe Attestation: DANIEL Saravia, scribed for HENNY DEE MD on 09/02/19 at 1648. Scribe Documentation Reviewed: Yes Provider Attestation: The documentation as recorded by the DANIEL tabor accurately reflects the service I personally performed and the decisions made by , HENNY DEE MD Status of Scribe Document: Viewed
[2019-09-02 14:34] LABS: ABS Lymphocytes 1.3 10^3/ul (1.0-4.8); ABS Monocytes 0.3 10^3/ul (0-0.8); ABS Neutrophils 4.9 10^3/ul (1.5-7.7); Eosinophil % 0.4 %; Hematocrit 47 % (35-47); Hemoglobin 16.6 g/dL (12.0-16.0); Lymphocyte % 20.1 %; Mean Corpuscular HGB Conc 35 g/dL (31-36); Mean Corpuscular Hemoglobin 29 pg (27-31); Mean Corpuscular Volume 82 fL (80-97); Mean Platelet Volume 8.7 fL (7.4-10.4); Nucleated Red Blood Cells % 0.1; Platelet Count 175 10^3/uL (150-450); Red Cell Distribution Width 14 % (10-15); White Blood Count 6.6 10^3/uL (3.5-10.8)
[2019-09-02 14:40] LABS: INR 0.97 (0.82-1.09)
[2019-09-02 14:49] LABS: Albumin 4.6 g/dL (3.2-5.2); Albumin/Globulin Ratio 1.5 (1-3); BUN/Creatinine Ratio 17.5 (8-20); Calcium 10.3 mg/dL (8.6-10.3); EGFR African American 118.3 (>60); EGFR Non-African American 97.8 (>60); Total Bilirubin 0.6 mg/dL (0.2-1.0); Total Protein 7.6 g/dL (6.4-8.9)
[2019-09-02 14:54] LABS: Potassium 2.6 mmol/L (3.5-5.0)
[2019-09-02] MEDS ORDERED: Potassium Chlor TAB* 20 MEQ TAB.ER PO ONE (14:54)
[2019-09-02] MEDS ORDERED: KCL 20 MEQ/100 ML IVPREMIX* 20 MEQ/100 ML BAG IV ONE (14:54)
[2019-09-02] MEDS ORDERED: Ondansetron INJ* 2 MG/ML VIAL IV ONE (15:16)
[2019-09-02 15:23] LABS: TSH (Thyroid Stimulating Horm) 0.78 mcIU/mL (0.34-5.60)
[2019-09-02 15:53] LABS: Magnesium 1.7 mg/dL (1.9-2.7)
[2019-09-02] MEDS ORDERED: Magnesium Sulfate 2 GM IV* 2 GM/50 ML BAG IVPB ONE (15:55)
[2019-09-02 17:31] VITALS: BP 150/92
== END 2019-09-02 17:29 | disposition home or self-care (01) ==
LOC: ED 13:28
DX: R11.2 Nausea with vomiting, unspecified (principal); I10 Essential (primary) hypertension; R06.82 Tachypnea, not elsewhere classified; E87.6 Hypokalemia; R20.2 Paresthesia of skin; R11.10 Vomiting, unspecified; F41.9 Anxiety disorder, unspecified; Z88.6 Allergy status to analgesic agent; Z88.2 Allergy status to sulfonamides; Z79.899 Other long term (current) drug therapy; Z85.828 Personal history of other malignant neoplasm of skin
CPT/HCPCS: 36415; 70450; 80053; 83735; 84443; 84484; 85025; 85610; 96365; 96367; 96375; 99283; A9270-GY; J2405; J3475; J3480